=== PATIENT | male | born 1995 | race Two or more races ===

== ENCOUNTER 2023-03-24 08:57 | Outpatient (AMB) | payer OTHER, SELFPAY ==
[2023-03-24 08:59] VITALS: BP 116/80; PULSE 85; RESP 12; TEMP 36.3; O2SAT 99; BMI 32.8
--- NOTE | 2023-03-24 08:59 | A.OFFPC_ITS ---
Vital Signs 03/24/23 08:59 Height 5 ft 9 in Weight 222 lb 4 oz BMI 32.8 BP 116/80 Blood Pressure Location Lt brachial Position Sitting Respiration 12 Pulse 85 Pulse Source Pulse Oximeter Temp 97.4 F Temp Source Temporal Artery Scan Pulse Oximetry (%) 99 Oxygen Delivery Method Room Air Intake Visit Reasons: New patient-requesting physical Intake Note: Patient would like a full panel of lab work done and would like to get a a x-ray done of his right knee. Patient [place] get it looked at, so now every time he tried to bend it it snaps. Fuel Cell Assembler Required: Yes Fuel Cell Assembler Name: Jesus ([id number]) Accompanied by: Self / Same As Patient Allergies No Known Allergies Allergy (Verified 03/24/23 09:49) Medication List - Last Reconciled 03/24/23 by Shelly Solis CNP lithium carbonate 300 mg PO BEDTIME quetiapine 50 mg PO DAILY Tobacco use date assessed: 03/24/23 Dental Screening Dental Screen Date: 03/24/23 Did you have a dental visit in the last 12 months?: No Did you have a dental problem in the last 6 months where you did not have access to dental care?: No Was dental information given to patient?: Yes HPI HPI Comments History of Present Illness Details 27-year-old Italian-speaking male brittani to establish care He notes that he relocated to [facility] from [place] in late October 2022 He notes he was last evaluated by his former PCP in [place] 5 years ago. His last blood work was at [facility] in 2019 He reports PMH significant for HTN, bipolar 2, anxiety, and depression He notes that Losartan 50 mg daily, lithium 300 mg every night, and quetiapine 50 mg daily He notes that he is followed by [facility] psychiatry in [place]. He states he sees his psychiatrist monthly and his psychiatrist manages his psychotropic medications. He is followed by a therapist weekly. He notes that his PCP in [place] prescribed his Losartan. He stopped taking the medication in Oct, 2022. He denies any acute symptoms at this time. He notes that he is sexually active, in a monogamous relationship, and has no concerns for STD. [facility] Medical History (Updated 03/24/23 @ 10:28 by Shelly Solis CNP) Injury of right knee Bipolar 1 disorder Anxiety and depression High blood pressure Sinusitis Surgical History (Updated 03/24/23 @ 09:19 by Alicia Rivera MA) No pertinent past surgical history Family History (Updated 03/24/23 @ 09:20 by Alicia Rivera MA) Father High blood pressure High cholesterol Diabetes Cancer Psychiatric disorder Social History Housing: Apartment Patient Tobacco Use Status: Never used Tobacco e-Cigarette/Vaping Use: Never Used service: No Current occupational status: employed Current occupation: [employer] Cognitive needs: No Hearing needs: No Vision needs: No Questionnaire PHQ-9 Over the last 2 weeks, how often have you been bothered by any of the following problems? 1. Little interest or pleasure in doing things: several days 2. Feeling down, depressed, or hopeless: several days 3. Trouble falling or staying asleep, or sleeping too much: several days 4. Feeling tired or having little energy: several days 5. Poor appetite or overeating: several days 6. Feeling bad about yourself - or that you are a failure or have let yourself or your family down: several days 7. Trouble concentrating on things, such as reading the newspaper or watching television: several days 8. Moving or speaking so slowly that other people could have noticed. Or the opposite - being so fidgety or restless that you have been moving around a lot more than usual: more than half the days 9. Thoughts that you would be better off or of hurting yourself in some way: more than half the days Total score: 11 Depression Screening Interpretation: Positive Depression Screening Follow-up: Existing condition and In treatment Source: Developed by Drs. Rainer Oquendo, Teodora Amaya, Aron sanders nd colleagues, with an educational sharri from [employer]. Thrive Questionnaire Date Thrive assessed: 03/24/23 I am a: Patient What is your living situation today?: I have a steady place to live Within the past 12 months, did the food you bought not last and you didn't have the money to get more?: Sometimes True Within the past 12 months, did you worry whether your food would run out before you got money to buy more?: Sometimes True Do you have trouble paying for medicines?: No Do you have trouble getting transportation to medical appointments?: Yes Do you have trouble paying your heating and electricity bill?: Yes Do you have trouble taking care of your child, family member or friend?: No Do you have trouble with day-to-day activities such as bathing, preparing meals, shopping, managing finances, etc.?: Yes Are you currently unemployed and looking for a job?: No Are you interested in more education?: Yes Please select the resources that you would like help with: Food, Transportation, Utilities, Job search/training and Education Currently or been in a relationship where the following occur: no concerns reported AUDIT C Alcohol Use Questionnaire (AUDIT-C) 1. How often do you have a drink containing alcohol?: Never 3. How often do you have six or more drinks on one occasion?: Never Total Score: 0 RICARDO-7 AMB Questionnaire RICARDO-7 Date RICARDO - 7 assessed: 03/24/23 Feeling nervous, anxious, or on edge: 1 = Several days Not being able to stop or control worryin = Several days Worrying too much about different things: 3 = Nearly every day Trouble relaxin = More than half the days Being so restless that it is hard to sit still: 2 = More than half the days Becoming easily annoyed or irritable: 3 = Nearly every day Feeling afraid as if something awful might happen: 2 = More than half the days Total RICARDO-7 score (0-4 normal; 5-9 mild; 10-14 moderate; 15-21 severe): 14 Source: Developed by Drs. Rainer Oquendo, Teodora Amaya, Aron Whiting and colleagues, with an educational sharri from [employer]. Review of Systems Const Details: Denies chills, Denies fatigue, Denies fever(s), Denies headache(s) and Denies weakness HEENT Denies change in vision, Denies dizziness, Denies headache(s), Denies hearing loss, Denies nasal congestion, Denies sinus pain, Denies sinus pressure and Denies sore throat Card Denies chest pain, Denies lightheadedness, Denies dyspnea and Denies other (palpitations) Resp Denies cough, Denies dyspnea and Denies wheezing GI Denies abdominal pain, Denies melena, Denies hematochezia, Denies change in bowel habits, Denies dyspepsia and Denies nausea Denies hematuria and Denies dysuria Musc Denies abnormal gait, Denies myalgias, Denies arthralgias, Denies numbness and Denies tingling Skin/Breast Denies rash, Denies unusual bruising and Denies wounds Neuro Denies abnormal gait, Denies dizziness, Denies headache(s), Denies memory loss, Denies numbness, Denies Sensory deficit (Neuro), Denies tingling and Denies weakness Psych Denies anxiety, Denies depression and Denies memory loss Endo Denies cold intolerance, Denies fatigue, Denies heat intolerance, Denies polydipsia and Denies polyuria Franki/Lymph Denies easy bleeding and Denies easy bruising Aller/Immun Denies wheezing Physical exam (Primary Care) Vital Signs: Last Vital Signs Temp 97.4 F 03/24/23 08:59 Pulse 85 03/24/23 08:59 Resp 12 03/24/23 08:59 BP 116/80 03/24/23 08:59 Pulse Ox 99 03/24/23 08:59 Oxygen Delivery Method Room Air 03/24/23 08:59 BMI result Body Mass Index 32.8 Tobacco/Smoking Status: Tobacco use Status Tobacco use date assessed 03/24/23 03/24/23 09:14 Patient Tobacco Use Status Never used Tobacco 03/24/23 09:14 e-Cigarette/Vaping Use Never Used 03/24/23 09:14 PHQ-9: PHQ-9 Score PHQ-9: Total score 11 03/24/23 09:25 Depression Screening Interpretation: Positive Depression Screening Follow-up: Existing condition and In treatment Thrive Assessment: Date of Thrive Assessment Date Thrive assessed 03/24/23 03/24/23 09:25 Currently or been in a relationship where the following occur: no concerns reported Const Other: General: no acute distress, well developed, alert and awake Nutritional Appearance: well nourished Orientation/consciousness: patient oriented x3 HENMT Head: Yes normocephalic and Yes atraumatic Ears: hearing grossly normal bilaterally and TM's normal bilaterally General nose exam: Normal external nose present and Normal nares present Mouth: Normal oral and palatal mucosa present and moist mucous membranes Teeth and gingiva: dentition normal Throat: Yes oropharynx normal Eyes Pupils: Equal, round and reactive pupils present and Pupil accommodation reflex normal EOM: EOMs intact bilaterally Neck Neck: Yes normal visual inspection, Yes no lymphadenopathy and Yes trachea midline Thyroid: Thyroid normal Carotids: no bruits Lymphatic: no lymphadenopathy noted Chest Chest palpation & inspection: normal inspection of the chest Resp Effort & Inspection: normal respiratory effort Auscultation: clear to auscultation bilaterally Cardio Rate: regular rate Rhythm: regular rhythm Heart sounds: S1 normal heart sound present, S2 normal heart sound present, no gallops, no murmurs and no rubs Bruits: no abdominal aortic bruits and no carotid bruits GI Palpation (GI): No Abdominal aortic bruit present, Soft to palpation, nontender, No hepatosplenomegaly present and No Rebound tenderness present Auscultation: normal bowel sounds General: Yes no CVA tenderness Back/Spine/Pelvis Back: no CVA tenderness Cervical Spine: cervical ROM normal and No Cervical spine tenderness Thoracic/Lumbar Spine: thoraco-lumbar ROM normal, No pain with thoraco-lumbar ROM, No thoracic spinal tenderness and No lumbar spinal tenderness Skin General: warm and dry. Normal skin color. Normal skin turgor Lesions: no lesions Rashes: no rashes Trauma: no lacerations or abrasions Wounds: no wounds Nails: normal Neuro General: patient oriented x3, gait normal and CN's II-XI intact bilaterally Cranial nerves: Yes Equal, round and reactive pupils present Cognition (Neuro): normal cognition Gait exam (Neuro): Normal gait present Motor exam (neuro): 5/5 motor strength present throughout Sensory Exam: No Sensory deficit (Neuro) Deep tendon reflexes (DTR's): Right patellar reflex intensity grade: 2+ and Left patellar reflex intensity grade: 2+ Extrem General: Yes normal to inspection, No edema and No calf tenderness Psych Appearance: grossly normal Affect: normal affect Attitude: cooperative Thought process: Normal thought process present Assessment and Plan Assessment & Plan (1) Normal physical examination, routine: Code(s): Z00.00 - Encounter for general adult medical examination without abnormal findings Plan: No significant physical restrictions limitations noted Advised to get blood work done before next visit Follow-up in 1 month or return sooner with symptoms or concerns Verbalized understanding and agreed with treatment plan. (2) Anxiety and depression: Code(s): F41.9 - Anxiety disorder, unspecified; F32.A - Depression, unspecified Plan: PHQ-9 and RICARDO-7 scores revealed moderate depression and anxiety Continue with current treatment regimen Continue follow-up with therapist and psychiatrist as planned Routine exercise encouraged Follow-up in 1 month or return sooner with worsening or new symptoms Verbalized understanding and agreed with treatment plan. (3) Bipolar 1 disorder: Code(s): F31.9 - Bipolar disorder, unspecified Plan: As above (4) High blood pressure: Code(s): I10 - Essential (primary) hypertension Plan: He reports history of hypertension to was managed by his doctor in [place]. He notes he was on losartan which he stopped taking 4 months ago. Blood pressure is 116/80, within goal of less than 140/90. Will not resume losartan at this time due to normal blood pressure without been on the medication for several months. He will continue to monitor blood pressure readings. Low-sodium diet and routine exercise encouraged Follow-up in 1 month or return sooner with symptoms or concerns Verbalized understanding and agreed with treatment plan. (5) Obesity (BMI 30.0-34.9): Code(s): E66.9 - Obesity, unspecified Plan: He currently weighs 222 lb, BMI is 32.8 Healthy diet and routine exercise encouraged May referred to dietitian if required Follow-up with symptoms or concerns Verbalized understanding and agreed with treatment plan. (6) Laboratory tests ordered as part of a complete physical exam (CPE): Code(s): Z00.00 - Encounter for general adult medical examination without abnormal findings Plan: Fasting labs ordered as part of a complete physical exam. Advised to fast for at least 10 hours before getting labs drawn. May drink water Verbalized understanding and agreed with treatment plan. Orders: Orders Comprehensive Loving. Panel Fast Today Z00.00 - Encounter for general adult medical examination without abnormal findings Lipid Panel Today Z00.00 - Encounter for general adult medical examination without abnormal findings Complete Blood Count Auto Diff Today Z00.00 - Encounter for general adult medical examination without abnormal findings TSH reflex Free T4 Today Z00.00 - Encounter for general adult medical examination without abnormal findings UA CC w/rflx Micro + Cult Today Z00.00 - Encounter for general adult medical examination without abnormal findings Coding Level of Care Code New Pt Prev Care [id number]([id number] Diagnoses Normal physical examination, routine Z00.00 Anxiety and depression F41.9; F32.A Bipolar 1 disorder F31.9 High blood pressure I10 Obesity (BMI 30.0-34.9) E66.9 Laboratory tests ordered as part of a complete physical exam (CPE) Z00.00
== END 2023-03-24 10:25 | disposition home or self-care (01) ==
PROVIDERS: PCP Nurse Practitioner Family; Visit Provider Nurse Practitioner Family
DX: Z00.00 Encounter for general adult medical examination without abnormal findings (principal); F41.9 Anxiety disorder, unspecified; F31.9 Bipolar disorder, unspecified; I10 Essential (primary) hypertension; E66.9 Obesity, unspecified; Z68.32 Body mass index [BMI] 32.0-32.9, adult
CPT/HCPCS: 99385

== ENCOUNTER 2023-04-06 10:21 | Outpatient (REF) | payer OTHER, SELFPAY | END 2023-04-06 10:22 | disposition home or self-care (01) | LOC: HO.HMGCLDS 10:21 | PROVIDERS: PCP Nurse Practitioner Family; Visit Provider Nurse Practitioner Family | DX: Z00.00 Encounter for general adult medical examination without abnormal findings (principal) | CPT/HCPCS: 36415; 80053; 80061; 81001; 84443; 85025 ==

== ENCOUNTER 2023-04-21 12:50 | Outpatient (AMB) | payer OTHER, SELFPAY ==
[2023-04-21 12:55] VITALS: BP 118/70; PULSE 82; RESP 16; TEMP 36.8; O2SAT 98; BMI 32.7
--- NOTE | 2023-04-21 12:55 | A.OFFPC_ITS ---
Vital Signs 04/21/23 12:55 Height 5 ft 9 in Weight 221 lb 4 oz BMI 32.7 BP 118/70 Blood Pressure Location Lt brachial Position Sitting Respiration 16 Pulse 82 Pulse Source Pulse Oximeter Temp 98.2 F Temp Source Oral Pulse Oximetry (%) 98 Intake Visit Reasons: 1 month anxiety, depression, bipolar, labs review Intake Note: Patient is here to follow up on anxiety, and bipolar, and labs Religious Education Teacher Required: Yes Religious Education Teacher Name: Elliot [id number] Allergies No Known Allergies Allergy (Verified 04/21/23 13:34) Medication List - Last Reconciled 04/21/23 by Shelly Solis CNP lithium carbonate 300 mg PO BEDTIME quetiapine 50 mg PO DAILY Tobacco use date assessed: 04/21/23 Dental Screening Dental Screen Date: 04/21/23 Did you have a dental visit in the last 12 months?: Yes Did you have a dental problem in the last 6 months where you did not have access to dental care?: No Was dental information given to patient?: Patient has dentist HPI HPI Comments History of Present Illness Details 27-year-old Malay Speaking male presen for hypertension, anxiety, depression, bipolar, and recent labs review follow-up. He is on lithium and quetiapine. He is followed by therapist and psychiatrist. He has history of being on an antihypertensive but currently He established care in the February. He had a physical exam done. Urinalysis and routine blood work were ordered. He had a positive reponse to the PHQ-9 question regarding Thoughts that you would be better off or of hurting yourself in some way. He notes that sometimes i feel sad and lonely. He notes that he has a female friend who he talks to and spends time. He notes that he feels better after tallking to or spending time with his female friend. He denies SI/HI, plans of committing suicide, and contracts for safety. ? He notes that he continues to take his psychotropic medications as prescribed with controlled anxiety and depression symptoms. He continues to follow up with his therapist and psychiatrist as planned. [facility] Medical History Injury of right knee Bipolar 1 disorder Anxiety and depression High blood pressure Sinusitis Surgical History (Updated 03/24/23 @ 09:19 by Alicia Rivera MA) No pertinent past surgical history Family History (Updated 03/24/23 @ 09:20 by Alicia Rivera MA) Father High blood pressure High cholesterol Diabetes Cancer Psychiatric disorder Social History Housing: Apartment Patient Tobacco Use Status: Never used Tobacco e-Cigarette/Vaping Use: Never Used service: No Current occupational status: employed Current occupation: [employer] Cognitive needs: No Hearing needs: No Vision needs: No Questionnaire PHQ-9 Over the last 2 weeks, how often have you been bothered by any of the following problems? 1. Little interest or pleasure in doing things: more than half the days 2. Feeling down, depressed, or hopeless: several days 3. Trouble falling or staying asleep, or sleeping too much: several days 4. Feeling tired or having little energy: several days 5. Poor appetite or overeating: several days 6. Feeling bad about yourself - or that you are a failure or have let yourself or your family down: more than half the days 7. Trouble concentrating on things, such as reading the newspaper or watching television: more than half the days 8. Moving or speaking so slowly that other people could have noticed. Or the opposite - being so fidgety or restless that you have been moving around a lot more than usual: more than half the days 9. Thoughts that you would be better off or of hurting yourself in some way: more than half the days Total score: 14 Depression Screening Interpretation: Positive Depression Screening Follow-up: Existing condition and In treatment Depression Screening Done: Yes Source: Developed by Drs. Rainer Oquendo, Teodora Amaya, Aron Whiting and colleagues, with an educational sharri from [employer]. Thrive Questionnaire Date Thrive assessed: 03/24/23 RICARDO-7 AMB Questionnaire RICARDO-7 Date RICARDO - 7 assessed: 04/21/23 Feeling nervous, anxious, or on edge: 2 = More than half the days Not being able to stop or control worryin = More than half the days Worrying too much about different things: 2 = More than half the days Trouble relaxin = More than half the days Being so restless that it is hard to sit still: 2 = More than half the days Becoming easily annoyed or irritable: 2 = More than half the days Feeling afraid as if something awful might happen: 2 = More than half the days Total RICARDO-7 score (0-4 normal; 5-9 mild; 10-14 moderate; 15-21 severe): 14 Source: Developed by Drs. Rainer Oquendo, Teodora Amaya, Aron Whiting and colleagues, with an educational sharri from [employer]. Review of Systems Const Details: Const Denies chills, Denies fatigue, Denies fever(s), Denies headache(s) and Denies weakness ENT Denies dizziness and Denies headache(s) Card Denies chest pain, Denies lightheadedness, Denies dyspnea and Denies other (Palpitations) Resp Denies cough, Denies dyspnea, Denies wheezing and Denies other ( shortness of breath) GI Denies abdominal pain, Denies melena, Denies hematochezia, Denies change in bowel habits, Denies dyspepsia and Denies nausea Denies hematuria and Denies dysuria Musc Denies abnormal gait, Denies myalgias, Denies arthralgias, Denies numbness and Denies tingling Skin/Breast Denies rash, Denies unusual bruising and Denies wounds Neuro Denies abnormal gait, Denies dizziness, Denies headache(s), Denies memory loss, Denies numbness, Denies Sensory deficit (Neuro), Denies tingling and Denies weakness Psych Denies anxiety, Denies depression, Denies memory loss Endo Denies cold intolerance, Denies fatigue, Denies heat intolerance, Denies polydipsia and Denies polyuria Aller/Immun Denies wheezing Physical exam (Primary Care) Vital Signs: Last Vital Signs Temp 98.2 F 04/21/23 12:55 Pulse 82 04/21/23 12:55 Resp 16 04/21/23 12:55 BP 118/70 04/21/23 12:55 Pulse Ox 98 04/21/23 12:55 BMI result Body Mass Index 32.7 Tobacco/Smoking Status: Tobacco use Status Tobacco use date assessed 04/21/23 04/21/23 13:04 Patient Tobacco Use Status Never used Tobacco 04/21/23 13:04 e-Cigarette/Vaping Use Never Used 04/21/23 13:04 PHQ-9: PHQ-9 Score PHQ-9: Total score 14 04/21/23 13:13 Depression Screening Interpretation: Positive Depression Screening Follow-up: Existing condition and In treatment Thrive Assessment: Date of Thrive Assessment Date Thrive assessed 03/24/23 04/21/23 13:04 Const Other: General: no acute distress and well developed Nutritional Appearance: well nourished Orientation/consciousness: patient oriented x3 HENMT Head: Yes normocephalic and Yes atraumatic Eyes General: appearance normal, both eyes and all related structures Pupils: Equal, round and reactive pupils present EOM: EOMs intact bilaterally Resp Effort & Inspection: normal respiratory effort Auscultation: clear to auscultation bilaterally Cardio Rate: regular rate Rhythm: regular rhythm Heart sounds: S1 normal heart sound present, S2 normal heart sound present, no gallops, no murmurs and no rubs GI Palpation (GI): No Abdominal aortic bruit present, Soft to palpation, nontender, No hepatosplenomegaly present and No Rebound tenderness present Auscultation: normal bowel sounds General: Yes no CVA tenderness Back/Spine/Pelvis Back: no CVA tenderness Cervical Spine: cervical ROM normal and No Cervical spine tenderness Thoracic/Lumbar Spine: thoraco-lumbar ROM normal, No pain with thoraco-lumbar ROM, No thoracic spinal tenderness and No lumbar spinal tenderness Extrem General: Yes normal to inspection, No edema and No calf tenderness Skin General: warm and dry. Normal skin color. Normal skin turgor Lesions: no lesions Rashes: no rashes Trauma: no lacerations or abrasions Wounds: no wounds Nails: normal Neuro General: patient oriented x3, gait normal and no focal neuro deficit Cranial nerves: Yes Equal, round and reactive pupils present Cognition (Neuro): normal cognition Gait exam (Neuro): Normal gait present Sensory Exam: No Sensory deficit (Neuro) Psych Appearance: grossly normal Affect: normal affect Attitude: cooperative Thought process: Normal thought process present Assessment and Plan Assessment & Plan (1) Anxiety and depression: Code(s): F41.9 - Anxiety disorder, unspecified; F32.A - Depression, unspecified Plan: He notes that he feels sad and lonely. However, he has a female friend form he talks to and spends time with. He denies SI/HI, no plans of committing suicide, and contracts for safety. PHQ-9 and RICARDO-7 scores revealed moderate depression and anxiety Continue to take lithium and quetiapine as prescribed Routine exercise encouraged Continue follow-up with therapist and psychiatrist as planned Return with worsening or new symptoms Verbalized understanding and agreed with treatment plan. Interpretation by a professional round kiln drawer via electronic tablet. (2) Bipolar 1 disorder: Code(s): F31.9 - Bipolar disorder, unspecified Plan: As above (3) Transaminitis: Code(s): R74.01 - Elevation of levels of liver transaminase levels Plan: He has recent blood work and urinalysis done 2 weeks ago AST and ALT are elevated, 56 and 108 respectively. He has history of elevated AST and ALT levels in 2019. He denies alcohol consumption Likely hepatic steatosis. Liver ultrasound ordered. Will review results and make changes to his care plan as needed Verbalized understanding and agreed with treatment plan. (4) Hyperlipidemia: Code(s): E78.5 - Hyperlipidemia, unspecified Qualifiers: Hyperlipidemia type: moderate mixed hyperlipidemia not requiring statin therapy Qualified Code(s): E78.2 - Mixed hyperlipidemia Plan: Recent triglycerides and LDL levels elevated, 182 in 160 respectively. HDL level is low 33 Advised to limit foods high in saturated fat and avoid foods high in trans fat Routine exercise encouraged Will recheck lipid level in 3 months. Advised to fast for 10-12 hours and get blood work done to 3 days before his next visit Follow-up in 3 months Verbalized understanding and agreed with treatment plan. (5) Elevated fasting glucose: Code(s): R73.01 - Impaired fasting glucose Plan: Recent fasting blood glucose was elevated, 169 Will recheck fasting glucose. Advised to fast for 10-12 hours before getting blood work done Schedule a telehealth visit for review of lab results in 2-3 weeks Verbalized understanding and agreed with treatment plan. (6) Obesity (BMI 30.0-34.9): Code(s): E66.9 - Obesity, unspecified Plan: He weighs 221 lb, BMI is 32.7 He request a referral to weight management Healthy diet and routine exercise encouraged Referred to weight management Follow-up with symptoms or concerns Verbalized understanding and agreed with treatment plan. (7) High blood pressure: Code(s): I10 - Essential (primary) hypertension Qualifiers: Hypertension type: primary hypertension Qualified Code(s): I10 - Essential (primary) hypertension Plan: His blood pressure is 118/70, within goal of less than 140/90 He has history of taking antihypertensive medication but not currently. Antihypertensive medication is not required at this time Low-sodium diet encouraged Will continue to monitor Follow-up in 3 months or return sooner with symptoms or concerns Verbalized understanding and agreed with treatment plan Orders: Orders US abdomen limited Today R74.01 - Elevation of levels of liver transaminase levels Glucose Fasting Today R73.01 - Impaired fasting glucose Lipid Panel 3 Months E78.5 - Hyperlipidemia, unspecified Referrals Medical Weight Management Referral E66.9 - Obesity, unspecified Coding Level of Care Code Est Pt Level 4 (14312) Diagnoses Anxiety and depression F41.9; F32.A Bipolar 1 disorder F31.9 Transaminitis R74.01 Moderate mixed hyperlipidemia not requiring statin therapy E78.2 Hyperlipidemia type: moderate mixed hyperlipidemia not requiring statin therapy Elevated fasting glucose R73.01 Obesity (BMI 30.0-34.9) E66.9 Primary hypertension I10 Hypertension type: primary hypertension
== END 2023-04-21 14:05 | disposition home or self-care (01) ==
PROVIDERS: PCP Nurse Practitioner Family; Visit Provider Nurse Practitioner Family
DX: F41.9 Anxiety disorder, unspecified (principal); F31.9 Bipolar disorder, unspecified; R74.01 Elevation of levels of liver transaminase levels; E78.2 Mixed hyperlipidemia; R73.01 Impaired fasting glucose; E66.9 Obesity, unspecified; I10 Essential (primary) hypertension
CPT/HCPCS: 99214

== ENCOUNTER 2023-06-11 07:37 | Outpatient (REF) | payer OTHER, SELFPAY ==
--- NOTE | ~2023-06-11 | US_ITS ---
EXAMINATION: US ABDOMEN LIMITED CLINICAL INFORMATION: Elevation of liver transaminase levels. COMPARISON: Ultrasound abdomen complete 02/08/2019. TECHNIQUE: Real-time imaging of the right upper quadrant abdominal viscera. FINDINGS: PANCREAS: Normal. LIVER: The liver is normal in size. The liver contour is normal. Echogenicity is heterogeneous and increased suggestive of hepatic steatosis. Focal fatty sparing is seen adjacent to the gallbladder. No focal hepatic lesion. There is no intrahepatic biliary duct dilatation seen. GALLBLADDER: The gallbladder is physiologically distended without evidence of stones, sludge, polyps, wall thickening or pericholecystic fluid. COMMON BILE DUCT: Normal in caliber measuring 0.6 cm in diameter. RIGHT KIDNEY: Normal. No hydronephrosis. No renal calculi or focal parenchymal lesions. The kidney measures 12.3 cm in maximum dimension. FREE FLUID: None. US/US abdomen limited IMPRESSION: Hepatic steatosis.
== END 2023-06-11 07:38 | disposition home or self-care (01) ==
LOC: HO.US 07:37
PROVIDERS: PCP Nurse Practitioner Family; Visit Provider Nurse Practitioner Family
DX: R74.01 Elevation of levels of liver transaminase levels (principal)
CPT/HCPCS: 76705

== ENCOUNTER 2023-11-29 16:00 | Outpatient (AMB) | payer OTHER, SELFPAY ==
--- NOTE | 2023-11-29 16:19 | A.OFFPC_ITS ---
Vital Signs 11/29/23 16:24 Height 5 ft 9 in Weight 213 lb 8 oz BMI 31.5 BP 126/80 Blood Pressure Location Lt brachial Position Sitting Respiration 16 Pulse 86 Pulse Source Pulse Oximeter Temp 98.1 F Temp Source Oral Pulse Oximetry (%) 95 Oxygen Delivery Method Room Air Intake Visit Reasons: OVERDUE FUP Intake Note: Follow up. Requesting refill on Quetiapine and Liithium. He lost touch with his Psychiatrist, she moved to a different facility. Is currently trying to find a new one. Research Editor Required: Yes Allergies No Known Allergies Allergy (Verified 11/29/23 16:50) Medication List - Last Reconciled 11/29/23 by Shelly Solis CNP lithium carbonate 300 mg PO BEDTIME quetiapine 50 mg PO DAILY Tobacco use date assessed: 11/29/23 Dental Screening Dental Screen Date: 04/21/23 HPI HPI Comments History of Present Illness Details 27-year-old Nauruan-speaking male presen for anxiety and bipolar 1 disorder follow up His last office visit was in March 2023. He did not follow-up as instructed. He admits to taking lithium and quetiapine as prescribed without adverse reactions. He reports control anxiety and depression symptoms on current treatment. He is followed by a therapist. He notes that he stopped seeing his psychiatrist 3 months ago because his corner brace block machine operator left the service and an corner brace block machine operator was not provided. He has been taking [place] 300mg at bedtime and Quetiapine 50mg daily. He notes that he will run out of the medications sometime this month. He is currently searching for a therapist and requests his PCP continue to refill his meds. No acute symptoms. Interpretation by a professional unit aid via electronic tablet. [facility] Medical History Injury of right knee Bipolar 1 disorder Anxiety and depression High blood pressure Sinusitis Surgical History (Updated 03/24/23 @ 09:19 by NORTH Villeda) No pertinent past surgical history Family History (Updated 03/24/23 @ 09:20 by NORTH Villeda) Father High blood pressure High cholesterol Diabetes Cancer Psychiatric disorder Social History Housing: Apartment Patient Tobacco Use Status: Never used Tobacco e-Cigarette/Vaping Use: Never Used service: No Current occupational status: employed Current occupation: [employer] Cognitive needs: No Hearing needs: No Vision needs: No Questionnaire PHQ-9 Over the last 2 weeks, how often have you been bothered by any of the following problems? 1. Little interest or pleasure in doing things: more than half the days 2. Feeling down, depressed, or hopeless: more than half the days 3. Trouble falling or staying asleep, or sleeping too much: nearly every day 4. Feeling tired or having little energy: more than half the days 5. Poor appetite or overeating: nearly every day 6. Feeling bad about yourself - or that you are a failure or have let yourself or your family down: more than half the days 7. Trouble concentrating on things, such as reading the newspaper or watching television: more than half the days 8. Moving or speaking so slowly that other people could have noticed. Or the opposite - being so fidgety or restless that you have been moving around a lot more than usual: several days 9. Thoughts that you would be better off or of hurting yourself in some way: several days Total score: 18 Depression Screening Interpretation: Positive Depression Screening Follow-up: Existing condition and In treatment Depression Screening Done: Yes 73152 - PHQ-9 Billing: Yes Source: Developed by Drs. Rainer Oquendo, Aron Cordova and colleagues, with an educational sharri from [employer]. Thrive Questionnaire Date Thrive assessed: 03/24/23 RICARDO-7 AMB Questionnaire RICARDO-7 Date RICARDO - 7 assessed: 11/29/23 Feeling nervous, anxious, or on edge: 3 = Nearly every day Not being able to stop or control worryin = More than half the days Worrying too much about different things: 3 = Nearly every day Trouble relaxin = More than half the days Being so restless that it is hard to sit still: 1 = Several days Becoming easily annoyed or irritable: 2 = More than half the days Feeling afraid as if something awful might happen: 2 = More than half the days Total RICARDO-7 score (0-4 normal; 5-9 mild; 10-14 moderate; 15-21 severe): 15 Source: Developed by Teodora Beverly Kurt Kroenke and colleagues, with an educational sharri from [employer]. RICARDO-7 Assessment Billing RICARDO-7 Assessment Tool: RICARDO-7 Assessment 30477 Review of Systems Const Details: Const Denies chills, Denies fatigue, Denies fever(s), Denies headache(s) and Denies weakness ENT Denies dizziness and Denies headache(s) Card Denies chest pain, Denies lightheadedness, Denies dyspnea and Denies other (Palpitations) Resp Denies cough, Denies dyspnea, Denies wheezing and Denies other ( shortness of breath) GI Denies abdominal pain, Denies melena, Denies hematochezia, Denies change in bowel habits, Denies dyspepsia and Denies nausea Denies hematuria and Denies dysuria Musc Denies abnormal gait, Denies myalgias, Denies arthralgias, Denies numbness and Denies tingling Skin/Breast Denies rash, Denies unusual bruising and Denies wounds Neuro Denies abnormal gait, Denies dizziness, Denies headache(s), Denies memory loss, Denies numbness, Denies Sensory deficit (Neuro), Denies tingling and Denies weakness Psych Denies anxiety, Denies depression, Denies memory loss Endo Denies cold intolerance, Denies fatigue, Denies heat intolerance, Denies polydipsia and Denies polyuria Aller/Immun Denies wheezing Physical exam (Primary Care) Vital Signs: Last Vital Signs Temp 98.1 F 11/29/23 16:24 Pulse 86 11/29/23 16:24 Resp 16 11/29/23 16:24 BP 126/80 11/29/23 16:24 Pulse Ox 95 11/29/23 16:24 Oxygen Delivery Method Room Air 11/29/23 16:24 BMI result Body Mass Index 31.5 Tobacco/Smoking Status: Tobacco use Status Tobacco use date assessed 11/29/23 11/29/23 16:26 Patient Tobacco Use Status Never used Tobacco 11/29/23 16:26 e-Cigarette/Vaping Use Never Used 11/29/23 16:26 PHQ-9: PHQ-9 Score PHQ-9: Total score 18 11/29/23 18:19 Depression Screening Interpretation: Positive Depression Screening Follow-up: Existing condition and In treatment Thrive Assessment: Date of Thrive Assessment Date Thrive assessed 03/24/23 11/29/23 16:26 Const Other: General: no acute distress and well developed Nutritional Appearance: well nourished Orientation/consciousness: patient oriented x3 [facility] Head: Yes normocephalic and Yes atraumatic Eyes General: appearance normal, both eyes and all related structures Pupils: Equal, round and reactive pupils present EOM: EOMs intact bilaterally Resp Effort & Inspection: normal respiratory effort Auscultation: clear to auscultation bilaterally Cardio Rate: regular rate Rhythm: regular rhythm Heart sounds: S1 normal heart sound present, S2 normal heart sound present, no gallops, no murmurs and no rubs GI Palpation (GI): No Abdominal aortic bruit present, Soft to palpation, nontender, No hepatosplenomegaly present and No Rebound tenderness present Auscultation: normal bowel sounds General: Yes no CVA tenderness Back/Spine/Pelvis Back: no CVA tenderness Cervical Spine: cervical ROM normal and No Cervical spine tenderness Thoracic/Lumbar Spine: thoraco-lumbar ROM normal, No pain with thoraco-lumbar ROM, No thoracic spinal tenderness and No lumbar spinal tenderness Extrem General: Yes normal to inspection, No edema and No calf tenderness Skin General: warm and dry. Normal skin color. Normal skin turgor Neuro General: patient oriented x3, gait normal and no focal neuro deficit Cranial nerves: Yes Equal, round and reactive pupils present Cognition (Neuro): normal cognition Gait exam (Neuro): Normal gait present Sensory Exam: No Sensory deficit (Neuro) Psych Appearance: grossly normal Affect: normal affect Attitude: cooperative Thought process: Normal thought process present Assessment and Plan Assessment & Plan (1) Bipolar 1 disorder: Code(s): F31.9 - Bipolar disorder, unspecified Plan: Reports controlled anxiety and depressive symptoms on current treatment regimen He stopped seeing his psychiatrist 3 months ago due not not having corner brace block machine operator access. However, he has been taking her medications as prescribed PHQ-9 and RICARDO-7 scores revealed moderately severe depression and severe anxiety respectively [place] and quetiapine refill sent. Advised to take as prescribed Will check lithium level Message sent to our CHW to help the patient connect to a therapist Advise to get outstanding blood work done before his next visit Follow-up in 1 month or return sooner with worsening or new symptoms Verbalized understanding and agreed with treatment plan (2) Anxiety and depression: Code(s): F41.9 - Anxiety disorder, unspecified; F32.A - Depression, unspecified Plan: As above (3) Hepatic steatosis: Code(s): K76.0 - Fatty (change of) liver, not elsewhere classified Plan: Recent abdomen ultrasound in 05/2023 review with the patient: revealed Hepatic steatosis. Healthy diet and routine exercise encouraged Will monitor liver enzymes periodically Follow up symptoms or concerns Verbalized understanding and agreed with the plan Orders: Orders Liver Panel 11/29/23 R74.01 - Elevation of levels of liver transaminase levels [place] 11/29/23 F31.9 - Bipolar disorder, unspecified Coding Level of Care Code Est Pt Level 4 (36679) Complex EM visit Add On G2211 Diagnoses Bipolar 1 disorder F31.9 Anxiety and depression F41.9; F32.A Hepatic steatosis K76.0 Additional Codes RICARDO-7 Assessment Billing - RICARDO-7 Assessment Tool: RICARDO-7 Assessment [id number] ([id number])
[2023-11-29 16:24] VITALS: BP 126/80; PULSE 86; RESP 16; TEMP 36.7; O2SAT 95; BMI 31.5
== END 2023-11-29 17:16 | disposition home or self-care (01) ==
PROVIDERS: PCP Nurse Practitioner Family; Visit Provider Nurse Practitioner Family
DX: F31.9 Bipolar disorder, unspecified (principal); K76.0 Fatty (change of) liver, not elsewhere classified; F41.9 Anxiety disorder, unspecified
CPT/HCPCS: 99214; G2211

== ENCOUNTER 2023-12-06 07:45 | Outpatient (REF) | payer OTHER, SELFPAY ==
[2023-12-06 12:08] LABS: Lithium < 0.10 mmol/L (0.60-1.20)
[2023-12-06 12:10] LABS: Alanine Aminotransferase 126 U/L (0-40); Albumin Level 4.3 g/dL (3.5-5.0); Alkaline Phosphatase 84 U/L (39-117); Aspartate Amino Transferase 62 U/L (5-37); Bilirubin Direct 0.1 mg/dL (0.0-0.5); Bilirubin Total 0.4 mg/dL (0.0-1.0); Cholesterol 182 mg/dL (<200); Glucose Fasting 200 mg/dL (60-99); HDL Cholesterol 33 mg/dL (>40); LDL Cholesterol Calculated 74 mg/dL (<100); Total Protein 7.6 g/dL (6.5-8.0); Triglycerides 379 mg/dL (<150)
[2023-12-06 12:18] LABS: Appearance Urine Clear; Color Urine Yellow; Glucose Urine UA >=1000 mg/dL (Negative); Leukocyte Esterase Urine Negative (Negative); Nitrite Urine Negative (Negative); PH 5.5 (5.0-9.0); Specific Gravity - Urine >= 1.030 (1.005-1.025); UMIC TRIGGER UACC YES; Urine Blood Negative (Negative); Urine Ketones Negative (Negative); Urine Protein 100 (2+) mg/dL (Neg-Trace)
[2023-12-06 12:23] LABS: Bacteria Urine None Seen (None Seen); Hyaline Casts Urine 0-2 /LPF (0-2); RBC Urine 0-2 /HPF (0-2); Squamous Epithelial Cell Urine 0-2 /HPF (0-2); WBC Urine 0-5 /HPF (0-5)
== END 2023-12-06 07:46 | disposition home or self-care (01) ==
LOC: HO.WFDLDS 07:45
PROVIDERS: Visit Provider Nurse Practitioner Family
DX: F31.9 Bipolar disorder, unspecified (principal); R73.01 Impaired fasting glucose; E78.5 Hyperlipidemia, unspecified; R74.01 Elevation of levels of liver transaminase levels
CPT/HCPCS: 36415; 80061; 80076; 80178; 81001; 81003; 82947

== ENCOUNTER 2023-12-31 14:57 | Outpatient (AMB) | payer OTHER, SELFPAY ==
--- NOTE | 2023-12-31 15:03 | MHC.PC.OV ---
Vital Signs 12/31/23 15:04 Height 5 ft 9 in Weight 214 lb 2 oz BMI 31.6 BP 114/80 Blood Pressure Location Rt brachial Position Sitting Respiration 14 Pulse 90 Pulse Source Pulse Oximeter Temp 98 F Temp Source Temporal Artery Scan Pulse Oximetry (%) 98 Oxygen Delivery Method Room Air Intake Visit Reasons: 1 month anxiety, bipolar 1 Mail Room Required: No Accompanied by: Self / Same As Patient Allergies No Known Allergies Allergy (Verified 12/31/23 15:18) Medication List - Last Reconciled 12/31/23 by Shelly Solis CNP lithium carbonate 300 mg PO BEDTIME 30 days quetiapine 50 mg PO DAILY 30 days Tobacco use date assessed: 11/29/23 Dental Screening Dental Screen Date: 12/31/23 Did you have a dental visit in the last 12 months?: No Did you have a dental problem in the last 6 months where you did not have access to dental care?: No Was dental information given to patient?: Yes HPI HPI Comments History of Present Illness Details 28-year-old [place]onian-speaking male presents for anxiety and bipolar 1 disorder follow up He admits to taking lithium and quetiapine as prescribed without adverse reactions He reports controlled depressive or anxiety or depressive episodes. No manic episodes. Denies SI/HI, AVH. No psychosis since 04/2023 His last lithium level on 12/06/2023 was 0.1 He notes that he started therapy with Favian Santiago at [facility] last week. He will be going biweekly. He found therapy effective. The plan is for the therapist to connect him with a psychiatrist He notes that he has been maintaining a healthy diet, including eating fish, and walks 30 minutes for days weekly. He has lost 16 pounds in the past 2 months He admits to consuming significant amount of cheese and red meat. He eats fast foods, canned foods, and rest of foods occasionally Interpretation by a professional student affairs vice president via electronic tablet [facility] Medical History Injury of right knee Bipolar 1 disorder Anxiety and depression High blood pressure Sinusitis Surgical History (Updated 03/24/23 @ 09:19 by NORTH Villeda) No pertinent past surgical history Family History (Updated 03/24/23 @ 09:20 by NORTH Villeda) Father High blood pressure High cholesterol Diabetes Cancer Psychiatric disorder Social History Housing: Apartment Patient Tobacco Use Status: Never used Tobacco e-Cigarette/Vaping Use: Never Used service: No Current occupational status: employed Current occupation: [employer] Cognitive needs: No Hearing needs: No Vision needs: No Questionnaire PHQ-9 Over the last 2 weeks, how often have you been bothered by any of the following problems? 1. Little interest or pleasure in doing things: several days 2. Feeling down, depressed, or hopeless: more than half the days 3. Trouble falling or staying asleep, or sleeping too much: nearly every day 4. Feeling tired or having little energy: more than half the days 5. Poor appetite or overeating: several days 6. Feeling bad about yourself - or that you are a failure or have let yourself or your family down: more than half the days 7. Trouble concentrating on things, such as reading the newspaper or watching television: more than half the days 8. Moving or speaking so slowly that other people could have noticed. Or the opposite - being so fidgety or restless that you have been moving around a lot more than usual: not at all 9. Thoughts that you would be better off or of hurting yourself in some way: not at all Total score: 13 Depression Screening Interpretation: Positive Depression Screening Follow-up: Existing condition and In treatment Depression Screening Done: Yes 73786 - PHQ-9 Billing: Yes Source: Developed by Drs. Rainer Oquendo, Teodora Amaya, Aron Whiting and colleagues, with an educational sharri from [employer]. Thrive Questionnaire Date Thrive assessed: 03/24/23 RICARDO-7 AMB Questionnaire RICARDO-7 Date RICARDO - 7 assessed: 12/31/23 Feeling nervous, anxious, or on edge: 2 = More than half the days Not being able to stop or control worryin = Nearly every day Worrying too much about different things: 2 = More than half the days Trouble relaxin = Several days Being so restless that it is hard to sit still: 1 = Several days Becoming easily annoyed or irritable: 3 = Nearly every day Feeling afraid as if something awful might happen: 2 = More than half the days Total RICARDO-7 score (0-4 normal; 5-9 mild; 10-14 moderate; 15-21 severe): 14 Source: Developed by Drs. Rainer Oquendo, Teodora Amaya, Aron Whiting and colleagues, with an educational sharri from [employer]. Review of Systems Const Details: Const Denies chills, Denies fatigue, Denies fever(s), Denies headache(s) and Denies weakness ENT Denies dizziness and Denies headache(s) Card Denies chest pain, Denies lightheadedness, Denies dyspnea and Denies other (Palpitations) Resp Denies cough, Denies dyspnea, Denies wheezing and Denies other ( shortness of breath) GI Denies abdominal pain, Denies melena, Denies hematochezia, Denies change in bowel habits, Denies dyspepsia and Denies nausea Denies hematuria and Denies dysuria Musc Denies abnormal gait, Denies myalgias, Denies arthralgias, Denies numbness and Denies tingling Skin/Breast Denies rash, Denies unusual bruising and Denies wounds Neuro Denies abnormal gait, Denies dizziness, Denies headache(s), Denies memory loss, Denies numbness, Denies Sensory deficit (Neuro), Denies tingling and Denies weakness Psych Denies anxiety, Denies depression, Denies memory loss Endo Denies cold intolerance, Denies fatigue, Denies heat intolerance, Denies polydipsia and Denies polyuria Aller/Immun Denies wheezing Physical exam (Primary Care) Tobacco/Smoking Status: Tobacco use Status Tobacco use date assessed 11/29/23 11/29/23 16:26 Patient Tobacco Use Status Never used Tobacco 11/29/23 16:26 e-Cigarette/Vaping Use Never Used 11/29/23 16:26 Depression Screening Interpretation: Positive Depression Screening Follow-up: Existing condition and In treatment Thrive Assessment: Date of Thrive Assessment Date Thrive assessed 03/24/23 11/29/23 16:26 Const Other: General: no acute distress and well developed Nutritional Appearance: well nourished Orientation/consciousness: patient oriented x3 HENMT Head: Yes normocephalic and Yes atraumatic Eyes General: appearance normal, both eyes and all related structures Pupils: Equal, round and reactive pupils present EOM: EOMs intact bilaterally Resp Effort & Inspection: normal respiratory effort Auscultation: clear to auscultation bilaterally Cardio Rate: regular rate Rhythm: regular rhythm Heart sounds: S1 normal heart sound present, S2 normal heart sound present, no gallops, no murmurs and no rubs GI Palpation (GI): No Abdominal aortic bruit present, Soft to palpation, nontender, No hepatosplenomegaly present and No Rebound tenderness present Auscultation: normal bowel sounds General: Yes no CVA tenderness Back/Spine/Pelvis Back: no CVA tenderness Cervical Spine: cervical ROM normal and No Cervical spine tenderness Thoracic/Lumbar Spine: thoraco-lumbar ROM normal, No pain with thoraco-lumbar ROM, No thoracic spinal tenderness and No lumbar spinal tenderness Extrem General: Yes normal to inspection, No edema and No calf tenderness Skin General: warm and dry. Normal skin color. Normal skin turgor Neuro General: patient oriented x3, gait normal and no focal neuro deficit Cranial nerves: Yes Equal, round and reactive pupils present Cognition (Neuro): normal cognition Gait exam (Neuro): Normal gait present Sensory Exam: No Sensory deficit (Neuro) Psych Appearance: grossly normal Affect: normal affect Attitude: cooperative Thought process: Normal thought process present Assessment and Plan Assessment & Plan (1) Bipolar 1 disorder: Code(s): F31.9 - Bipolar disorder, unspecified Plan: Controlled mood and anxiety symptoms PHQ-9 and RICARDO-7 scores revealed moderate depression and anxiety Continue current treatment regimen [place] level almost a month ago was 0.1. Will recheck lithium level today. Will also check TSH level. Will make changes as needed Continue follow-up with therapist as planned Return in 1 month for an extended physical exam or sooner with symptoms or concerns Verbalized understanding and agreed with treatment plan (2) Anxiety and depression: Code(s): F41.9 - Anxiety disorder, unspecified; F32.A - Depression, unspecified Plan: As above (3) Hypertriglyceridemia: Code(s): E78.1 - Pure hyperglyceridemia Plan: Recent triglycerides level is elevated, 379. HDL is low, 33 Fenofibrate 120 mg daily ordered. Advised to take as prescribed. Instructed on the risks, benefits, and potential adverse reactions of the medication Advised to limit foods high in saturated fat and avoid foods high in trans fat Routine exercise encouraged Will recheck lipid panel. Advised to fast for 10-12 hours, may drink water only, and get blood work done a few days before his next visit Follow-up in 1 month Verbalized understanding and agreed with the plan Orders: Orders TSH reflex Free T4 Today F31.9 - Bipolar disorder, unspecified Vitamin D 25-OH Total Today E55.9 - Vitamin D deficiency, unspecified Lipid Panel 1 Month E78.1 - Pure hyperglyceridemia [place] Today F31.9 - Bipolar disorder, unspecified [place] 1 Month F31.9 - Bipolar disorder, unspecified Medications: New fenofibrate 120 mg PO DAILY 30 days 30 tabs 3RF Coding Level of Care Code Est Pt Level 4 (84906) Complex EM visit Add On G2211 Diagnoses Bipolar 1 disorder F31.9 Anxiety and depression F41.9; F32.A Hypertriglyceridemia E78.1
[2023-12-31 15:04] VITALS: BP 114/80; PULSE 90; RESP 14; TEMP 36.6; O2SAT 98; BMI 31.6
== END 2023-12-31 15:51 | disposition home or self-care (01) ==
PROVIDERS: PCP Nurse Practitioner Family; Visit Provider Nurse Practitioner Family
DX: E78.1 Pure hyperglyceridemia (principal); F31.9 Bipolar disorder, unspecified; F41.9 Anxiety disorder, unspecified
CPT/HCPCS: 99214; G2211

== ENCOUNTER 2023-12-31 15:52 | Outpatient (REF) | payer OTHER, SELFPAY ==
[2023-12-31 17:16] LABS: Appearance Urine Clear; Color Urine Yellow; Glucose Urine UA >=1000 mg/dL (Negative); Leukocyte Esterase Urine Negative (Negative); Nitrite Urine Negative (Negative); PH 5.5 (5.0-9.0); Specific Gravity - Urine >= 1.030 (1.005-1.025); UMIC TRIGGER UACC YES; Urine Blood Negative (Negative); Urine Ketones Trace mg/dL (Negative); Urine Protein 100 (2+) mg/dL (Neg-Trace)
[2023-12-31 17:47] LABS: Lithium < 0.10 mmol/L (0.60-1.20)
[2023-12-31 17:48] LABS: Bacteria Urine None Seen (None Seen); Hyaline Casts Urine 0-2 /LPF (0-2); RBC Urine 0-2 /HPF (0-2); Squamous Epithelial Cell Urine 0-2 /HPF (0-2); WBC Urine 0-5 /HPF (0-5)
[2023-12-31 17:59] LABS: TSH reflex Free T4 0.48 uIU/mL (0.32-4.0); Vitamin D 25-OH Total 17.3 ng/mL (>30)
== END 2023-12-31 15:53 | disposition home or self-care (01) ==
LOC: HO.WFDLDS 15:52
PROVIDERS: Visit Provider Nurse Practitioner Family
DX: E55.9 Vitamin D deficiency, unspecified (principal); F31.9 Bipolar disorder, unspecified
CPT/HCPCS: 36415; 80178; 81001; 82306; 84443

== ENCOUNTER 2024-01-28 07:30 | Outpatient (REF) | payer OTHER, SELFPAY ==
[2024-01-28 11:20] LABS: Appearance Urine Clear; Color Urine Yellow; Glucose Urine UA >=1000 mg/dL (Negative); Leukocyte Esterase Urine Negative (Negative); Nitrite Urine Negative (Negative); PH 5.5 (5.0-9.0); Specific Gravity - Urine >= 1.030 (1.005-1.025); UMIC TRIGGER UACC YES; Urine Blood Negative (Negative); Urine Ketones Negative (Negative); Urine Protein 100 (2+) mg/dL (Neg-Trace)
[2024-01-28 11:23] LABS: Bacteria Urine None Seen (None Seen); Hyaline Casts Urine 0-2 /LPF (0-2); RBC Urine 0-2 /HPF (0-2); Squamous Epithelial Cell Urine 0-2 /HPF (0-2); WBC Urine 0-5 /HPF (0-5)
[2024-01-28 11:48] LABS: Lithium < 0.10 mmol/L (0.60-1.20)
[2024-01-28 12:00] LABS: Cholesterol 176 mg/dL (<200); HDL Cholesterol 32 mg/dL (>40); LDL Cholesterol Calculated 90 mg/dL (<100); Triglycerides 271 mg/dL (<150)
[2024-01-28 12:04] LABS: Vitamin D 25-OH Total 54.3 ng/mL (>30)
== END 2024-01-28 07:31 | disposition home or self-care (01) ==
LOC: HO.WFDLDS 07:30
PROVIDERS: Visit Provider Nurse Practitioner Family
DX: F31.9 Bipolar disorder, unspecified (principal); E78.1 Pure hyperglyceridemia; E55.9 Vitamin D deficiency, unspecified
CPT/HCPCS: 36415; 80061; 80178; 81001; 82306